=== PATIENT | female | born 1985 | race Caucasian/White ===

== ENCOUNTER 2017-12-21 14:50 | Emergency (ER) | payer OTHER ==
[~2017-12-21] VITALS: Ht 165.1 cm; Wt 161.0 kg
[2017-12-21] MEDS ORDERED: PRENA1 PEARL S1 EACH PO (14:55)
[2017-12-21 16:33] LABS: HEMATOCRIT 40.2 % (37.0-47.0); HEMOGLOBIN 13.5 gm/dL (12.0-15.0); MCH 27.9 pg (26.0-34.0); MCHC 33.5 g/dL (28.0-37.0); MCV 83.3 fL (80.0-100.0); RBC 4.83 mil/uL (4.20-5.00); RDW 14.5 % (10.5-14.5); WBC 10.6 thou/uL (4.0-11.0)
[2017-12-21 17:07] LABS: CREATININE 0.8 mg/dL (0.6-1.0); POTASSIUM 3.8 mmol/L (3.5-5.1)
[2017-12-21 17:14] LABS: ALBUMIN 3.6 g/dL (3.4-5.0); TOTAL BILIRUBIN 0.4 mg/dL (<0.1-1.0); TOTAL PROTEIN 7.3 g/dL (6.4-8.2)
[2017-12-21] MEDS ORDERED: MORPHINE SULFAT15 M3 PO (17:58)
[2017-12-21 19:40] VITALS: BP 122/52
== END 2017-12-21 19:40 | disposition home or self-care (01) ==
LOC: ER 14:50
PROVIDERS: Emergency Medicine
DX: S82.832A Other fracture of upper and lower end of left fibula, initial encounter for closed fracture (principal); S82.52XA Displaced fracture of medial malleolus of left tibia, initial encounter for closed fracture; W18.40XA Slipping, tripping and stumbling without falling, unspecified, initial encounter; Y92.009 Unspecified place in unspecified non-institutional (private) residence as the place of occurrence of the external cause; Y93.89 Activity, other specified; Y99.8 Other external cause status

== ENCOUNTER → 2017-12-24 | Day surgery (SDC) | payer OTHER ==
[~2017-12-24] MED LIST: MORPHINE SULFAT15 M3 PO; PRENA1 PEARL S1 EACH PO
== END | disposition home or self-care (01) ==
LOC: CANPRESDC → OR 05:22 → TBA 05:23 → OR 11:21
DX: S82.92XA Unspecified fracture of left lower leg, initial encounter for closed fracture (principal); Z53.9 Procedure and treatment not carried out, unspecified reason